=== PATIENT | female | born 1995 | race Two or more races ===

== ENCOUNTER 2022-02-27 12:06 | Emergency (ER) | payer MEDICAID ==
[~2022-02-27] VITALS: Ht 154.9 cm; Wt 85.7 kg
[2022-02-27 12:21] VITALS: BP 134/72
--- NOTE | 2022-02-27 13:16 | NUR ---
DR AGUERO AT BEDSIDE FOR SUTURING OF LACERATION AT [facility]
--- NOTE | 2022-02-27 13:41 | NUR ---
Patient discharged to home in stable condition. Written and verbal after care instructions given. Patient verbalizes understanding of instruction.
== END 2022-02-27 13:42 | disposition home or self-care (01) ==
LOC: ER 12:22
DX: S51.812A Laceration without foreign body of left forearm, initial encounter (principal); F32.A Depression, unspecified; F41.9 Anxiety disorder, unspecified; X78.8XXA Intentional self-harm by other sharp object, initial encounter; Y93.89 Activity, other specified; Y92.89 Other specified places as the place of occurrence of the external cause; Y99.8 Other external cause status
CPT/HCPCS: 99282; 12002; A6403